=== PATIENT | female | born 1965 | race Caucasian/White ===

== ENCOUNTER 2023-11-19 17:33 | Emergency (ER) | payer OTHER, SELFPAY ==
[2023-11-19 17:36] VITALS: BP 139/105; BMI 22.7
[2023-11-19 19:57] VITALS: BP 144/91
[2023-11-19 20:00] VITALS: BP 139/101
[2023-11-19] MEDS: TORADOL 30 MG IV (20:04)
[2023-11-19] MEDS: VALIUM INJECTION 2 MG IV (21:00)
--- NOTE | 2023-11-19 21:46 | ED.GENMED ---
History of Present Illness
General
Chief Complaint: Back Pain
Source: patient
Exam Limitations: none
Time Seen by Provider: 11/19/23 19:05
Nursing documentation reviewed up to this point in time: agreed with
Travel History
Have you had any contact with someone who has COVID-19?: No
Do you have any symptoms of coronavirus? Fever > 100 degrees, chills, cough, shortness of breath, sore throat, loss of taste or smell, muscle aches, or headache?: No
History of Present Illness
History of Present Illness:
Patient to ED with complaint of low back pain. Pain started this AM after tripping over dog. Pain across low back. Brought to ED by spouse for eval.
Past History
Past History
ED Past Medical History: Other and Other (Prior herniated disc in the mid upper back); Negative Asthma or CAD
ED Past Surgical History: Negative Cardiac
Social History
Tobacco: Non-smoker
Alcohol: Occasional
Drug: None
Personal:
Living: with family
Employment: Employed
Family History
Family History: Hypertension
Review of Systems
Review of Systems
Allergies reviewed?: Yes
All Other Systems: ROS reviewed and negative except as documented in HPI and ROS
Constitutional: Reports no symptoms
ABD/GI: Reports no symptoms
: Reports no symptoms
Musculoskeletal: Reports back pain
Skin: Reports no symptoms
Neurological: Reports no symptoms
Psychiatric: Reports no symptoms
Phy Exam
General Physical Exam
General Presentation: well appearing
General age: appears stated age
General Skin: warm
General Habitus: normal
General Mental: alert
General Hydration: appears well hydrated
Pulmonary Exam
Pulmonary Exam: lungs clear and no respiratory distress
Gastrointestinal Exam
Gastrointestinal Exam: normal bowel sounds and non tender
Reflexes
Reflexes: +3: Left patellar and +3: Right patellar
Musculoskeletal Exam
Musculoskeletal Exam: neuro vasc intact
Skin Exam
Skin Exam: normal color, warm/dry and no rash
Psychiatric Exam
Psychiatric Exam: normal mood/affect
Course
Orders/Labs/Results
Orders:
Orders
11/19/23 19:25
Ketorolac [Toradol] 30 mg IV NOW STA
Lumbar Spine Complete, 4 View [CR Lumbar Spine Comp Min 4 Vw*] Urgent
Comment:
Reason For Exam: pain
11/19/23 20:56
diazePAM [Valium Injection] 10 mg .ROUTE .STK-MED ONE
11/19/23 20:59
diazePAM [Valium Injection] 2 mg IV NOW STA
11/19/23 21:49
HYDROmorphone [Dilaudid] 0.5 mg IV NOW STA
Vital Signs
Initial and Last Documented VS:
Initial Vital Signs
Temp Pulse Resp BP Pulse Ox
98.7 F 97 16 139/105 99
11/19/23 17:36 11/19/23 17:36 11/19/23 17:36 11/19/23 17:36 11/19/23 17:36
Last Documented Vital Signs
Temp Pulse Resp BP Pulse Ox
98.7 F 97 16 111/71 97
11/19/23 17:36 11/19/23 17:36 11/19/23 17:36 11/19/23 21:54 11/19/23 21:55
*Radiology
Radiology exam reviewed: radiology read reviewed
*Pulse Oximetry
Patient hypoxic: no
*Critical Care Note
Total Time (30-74mins, 75-104mins- exclusive of procedures): Not Applicable
ED Attending Note
-
Portions of this chart may have been created with voice recognition software.� Occasional wrong word or��sound alike� substitutions may have occurred due to the inherent limitations of voice recognition software.
Discharge Plan
Departure
Patient Disposition: Home (Routine Discharge)
Date of Disposition: 11/19/23
Time of Disposition: 21:35
Patient with high blood pressure during this ER visit?: No
Condition: Good
Covid-19: Not Applicable
Discharge Problem:
Low back pain
Instructions: Low Back Pain (DC), Degenerative Disc Disease (DC)
Prescriptions:
No Action
Advil
200 mg PO PRN PRN (Reason: pain)
cyclobenzaprine 10 MG tablet
5 mg PO PRN PRN (Reason: neck pain)
Patient Comments:
pt states she hasn't used in months
cetirizine 10 MG tablet
10 mg PO DAILY PRN (Reason: allergies)
acetaminophen [Tylenol Extra Strength] 500 MG tablet
1,000 mg PO Q6HPRN PRN (Reason: pain)
hydromorphone 2 MG tablet
2 mg PO Q4HPRN PRN (Reason: pain)
Patient Comments:
pt states she hasn't used in years
meclizine 25 MG tablet
0.25 tab PO PRN PRN (Reason: dizziness)
diazepam 2 MG tablet
1 mg PO PRN PRN (Reason: vertigo/anxiety )
Patient Comments:
pt states she hasn't used in months
celecoxib 100 MG capsule
100 mg PO PRN PRN (Reason: pain)
fluticasone propionate 1 SPRAY spray,suspension
1 spray intranasal DAILY
loratadine 10 MG tablet
10 mg PO DAILY PRN (Reason: allergies)
docosahexaenoic acid-epa 1 CAP capsule
1 cap PO PRN PRN (Reason: dry eye)
cholecalciferol (vitamin D3) 2,000 UNITS tablet
2,000 units PO DAILY
multivitamin with folic acid [Tab-A-Eunice] 1 TABLET tablet
1 tab PO DAILY
Cbd Oil
0.5 ml PO DAILY
Elderberry With Zinc
1 cap PO DAILY
Referrals:
Gretchen Becerra MD [Family Provider] - Follow up in 2-3 days
Activity Restrictions/Additional Instructions:
Follow up with your pain managment provider next week as scheduled
Interventions
Interventions:
*Risk Screen - Suicide Last Done: 11/19/23 17:36
*General Assessment Last Done: 11/19/23 19:55
*Neglect/Abuse Screening Last Done: 11/19/23 17:36
ED- Fall Risk Assessment Last Done: 11/19/23 19:55
*ED COVID-19 Vaccine History Last Done: 11/19/23 17:36
*Nursing Disposition Last Done: 11/19/23 22:20
ED-Musculoskeletal Assessment Last Done: 11/19/23 19:55
Discharge Date and Time
Discharge Date/Time: 11/19/23 22:21
[2023-11-19] MEDS: DILAUDID 0.5 MG IV (21:53)
[2023-11-19 21:54] VITALS: BP 111/71
== END 2023-11-19 22:21 | disposition home or self-care (01) ==
LOC: EMR 17:33
PROVIDERS: EMERGENCY PHYSICIAN Emergency Medicine; FAMILY PHYSICIAN Family Medicine
DX: M54.50 Low back pain, unspecified (principal); W01.0XXA Fall on same level from slipping, tripping and stumbling without subsequent striking against object, initial encounter; Z82.49 Family history of ischemic heart disease and other diseases of the circulatory system
CPT/HCPCS: 99283; 96374; 96375; 72110

== ENCOUNTER → 2023-12-13 09:45 | Outpatient (REF) | payer OTHER, SELFPAY | LOC: RAD 09:45 | PROVIDERS: ATTENDING PHYSICIAN Family Medicine | DX: M25.551 Pain in right hip (principal); M25.552 Pain in left hip; R10.2 Pelvic and perineal pain | CPT/HCPCS: 73523 ==

== ENCOUNTER → 2023-12-26 08:44 | Outpatient (REF) | payer OTHER, SELFPAY | LOC: WDC 08:44 | PROVIDERS: ATTENDING PHYSICIAN Family Medicine | DX: Z12.31 Encounter for screening mammogram for malignant neoplasm of breast (principal) | CPT/HCPCS: 77063; 77067 ==

== ENCOUNTER → 2024-12-31 08:20 | Outpatient (REF) | payer OTHER, SELFPAY | LOC: WDC 08:20 | PROVIDERS: ATTENDING PHYSICIAN Family Medicine | DX: Z12.31 Encounter for screening mammogram for malignant neoplasm of breast (principal) | CPT/HCPCS: 77063; 77067 ==